=== PATIENT | male | born 1935 | race African-American/Black ===

== ENCOUNTER 2019-04-06 18:41 | Emergency (ER) | payer OTHER ==
[~2019-04-06] VITALS: Ht 175.3 cm; Wt 81.6 kg
[2019-04-06 18:52] VITALS: Ht 175.3 cm; Wt 81.6 kg
[2019-04-06 19:58] LABS: BASOPHIL % 0.8 % (0-2); PLATELET COUNT 278 x10^3mcL (130-400)
[2019-04-06 20:01] LABS: RED CELL DISTRIBUTION WIDTH 15.1 % (11.5-14.5)
[2019-04-06 20:34] LABS: ALBUMIN 3.6 g/dL (3.4-5.0); ALKALINE PHOSPHATASE 70 U/L (46-116); ALT/SGPT 16 U/L (16-63); AST/SGOT 19 U/L (15-37); BILIRUBIN TOTAL 0.5 mg/dL (0.20-1.00); CALCIUM 10.2 mg/dL (8.5-10.1); CARBON DIOXIDE 30.6 mmol/L (21-32); CHLORIDE SERUM 95 mmol/L (98-107); GLUCOSE SERUM 92 mg/dL (74-106); POTASSIUM SERUM 4.9 mmol/L (3.5-5.1); SODIUM SERUM 134 mmol/L (136-145)
[2019-04-06 20:39] LABS: AMPHETAMINE QUAL UR NONE DETECTED (See below)
[2019-04-06 20:45] LABS: TOTAL PROTEIN, SERUM 8.6 g/dL (6.4-8.2)
[2019-04-06 20:46] LABS: CREATININE SERUM 6.4 mg/dL (0.7-1.3)
[2019-04-06 21:20] VITALS: BP 167/82
== END 2019-04-06 21:54 | disposition left against medical advice (07) ==
LOC: ED 18:41
PROVIDERS: Emergency Medicine
DX: R79.89 Other specified abnormal findings of blood chemistry (principal); N18.9 Chronic kidney disease, unspecified; V49.9XXA Car occupant (driver) (passenger) injured in unspecified traffic accident, initial encounter; Y93.I9 Activity, other involving external motion; Y92.413 State road as the place of occurrence of the external cause; Y99.8 Other external cause status
CPT/HCPCS: 36415